=== PATIENT | female | born 1970 | race Hispanic/Latino ===

== ENCOUNTER 2016-09-24 11:23 | Emergency (ER) | payer OTHER ==
--- NOTE | 2016-09-24 12:19 | ED PDOC ---
Arrival/HPI - General Time Seen by Provider: 09/24/16 11:59 - History of Present Illness Narrative History of Present Illness (Text): 09/24/16 12:16 Did not see patient and had no contact with patient LE US pre-ordered per Dr. Lund's request to r/o DVT informed by RN that pt eloped from waiting room Past Medical History - Psychiatric Hx Depression: No Hx Emotional Abuse: No Hx Physical Abuse: No Hx Substance Use: No - Suicidal Assessment Feels Threatened In Home Enviroment: No Family/Social History Family/Social History: Unknown Family HX Hx Alcohol Use: No Hx Substance Use: No Hx Substance Use Treatment: No Allergies/Home Meds Allergies/Adverse Reactions: Allergies No Known Allergies Allergy (Verified 06/06/12 15:23) Home Medications: Home Meds Medication Instructions Recorded Confirmed Furosemide [Lasix] 0 mg PO DAILY 06/06/12 06/06/12 Potassium Chloride 0 meq PO DAILY 06/06/12 06/06/12 Review of Systems - Review of Systems Systems not reviewed;Unavailable: Other (eloped) Physical Exam Vital Signs Reviewed: No (eloped) Disposition/Present on Arrival - Present on Arrival Any Indicators Present on Arrival: No History of DVT/PE: No History of Uncontrolled Diabetes: No Urinary Catheter: No - Disposition Have Diagnosis and Disposition been Completed?: Yes Diagnosis: No diagnosis Disposition: LEFT W/O BEING SEEN - ER ONLY Disposition Time: 12:18 Condition: UNKNOWN
== END 2016-09-24 12:18 | disposition left against medical advice (07) ==
LOC: ED 11:23
DX: Z02.89 Encounter for other administrative examinations (principal); M79.606 Pain in leg, unspecified